=== PATIENT | female | born 1985 | race Caucasian/White ===

== ENCOUNTER 2017-02-10 12:46 | Emergency (ER) | payer OTHER ==
--- NOTE | ~2017-02-10 | US98 ---
[facility] A Service of [facility] & [facility] RADIOLOGY TEXT RESULTS PATIENT: BENJAMIN SHAW LOCATION: [facility] : [birth year] UNIT #: [id number] AGE: [address]: Phoebe Lora SEX: F ORDER DR: [id number] [facility] [address] [place], [place] [address] [id number] E MR#: [id number] Acc #: [id number] NAME: BENJAMIN SHAW : 1985 SEX: F STUDY DATE/TIME: 02/10/2017 13:50 UNIT: CFTX ROOM: STUDY DESCRIPTION: US Pelvic Non-OB Complete Attending Physician: Phoebe Lora Pa-C Ordering Physician: Phoebe Lora Pa-C Primary Care Physician: No Primary Care Physician MEDICAL IMAGING REPORT This report is preliminary unless electronic signature is present EXAM Pelvic ultrasound 02/10/2017 HISTORY Pain. Right lower quadrant pain for 2 days. History of cervical cancer. FINDINGS Real-time ultrasonography of the pelvic structures performed transabdominally and transvaginally. Transvaginal imaging utilized for better visualization of uterine and adnexal structures. The transabdominal imaging is suboptimal due to poor bladder filling. Urinary bladder is unremarkable in visualized extent. The uterus measures approximately 6.02 cm x 2.24 cm x 2.94 cm. Myometrium unremarkable. The endometrial echo complex measures approximately 1-2 mm in thickness. There may be a trace amount of fluid in the endometrial cavity. No suspicious endometrial finding. The right ovary measures 2.33 cm x 2.63 cm x 4.24 cm. Follicular cysts are present. Arterial flow is present. In the posterior mid right ovary there is an echogenic focus measuring 1.67 cm x 0.92 cm x 1.31 cm. This is not as echogenic as anticipated for fatty tissue to suggest ovarian dermoid. Ovarian dermoid remains in the differential diagnosis. A complicated cyst with internal products of hemorrhage could be considered. The left ovary measures approximately 3.05 cm x 1.86 cm x 3.49 cm. Arterial flow noted. IMPRESSION 1. The uterus shows normal size and contour. Normal myometrium. Endometrial echo complex normal in thickness. There may be a trace amount of fluid in the endometrial canal. 2. Vascular flow noted in bilateral ovaries. 3. Echogenic focus in the right ovary measuring up to 1.67 cm in diameter. Indeterminate appearance. Not as echogenic as might be anticipated for ovarian fat as with a ovarian dermoid. Fatty component not excluded. The possibility of a complicated cyst with STS. [facility] A Service of [facility] RADIOLOGY TEXT RESULTS PATIENT: BENJAMIN SHAW LOCATION: [facility] : [birth year] UNIT #: [id number] AGE: [address]: Phoebe Lora SEX: F ORDER DR: internal products of hemorrhage could be considered and is probably more likely. The history provided for this patient includes cervical cancer. Given this history, prior pelvic imaging is likely to have been performed. Comparison with any prior studies recommended. In the absence of prior studies, further characterization of the echogenic focus in right ovary with MRI if patient is candidate or CT would be recommended. At the very least, followup ultrasound imaging in 6 weeks when the patient should be at a different phase of the menstrual cycle would be useful to assess for decreasing size or resolution of this right ovarian finding. Dictated by... Goyo Rivera M.D. THIS IS AN ELECTRONICALLY VERIFIED REPORT Goyo Rivera M.D. at 02/11/2017 4:50 PM Tres TD: 02/10/2017 16:59 JOB #: [id number] MEDICAL IMAGING REPORT Page 1 of 1 COPY
[2017-02-10 12:39] LABS: URINE SOURCE CLEAN CATCH
[2017-02-10 12:56] LABS: URINE APPEARANCE CLEAR; URINE BILIRUBIN NEG (NEG); URINE BLOOD NEG (NEG); URINE COLOR YELLOW; URINE GLUCOSE NEG (NEG); URINE KETONE NEG (NEG); URINE LEUKOCYTE ESTERASE NEG (NEG); URINE NITRATE NEG (NEG); URINE PH 6.5 (5-8); URINE PROTEIN NEG (NEG); URINE SPECIFIC GRAVITY 1.019 (1.003-1.035)
[2017-02-10 13:00] LABS: CULTURE INDICATED? NO
[2017-02-15 03:38] LABS: CHLAMYDIA TRACH Not Detected (Not Detected); N GONOR Not Detected (Not Detected)
== END 2017-02-10 15:45 | disposition home or self-care (01) ==
LOC: CED 12:46
PROVIDERS: Physician Assistant Medical
DX: N83.201 Unspecified ovarian cyst, right side (principal); N76.0 Acute vaginitis; F17.210 Nicotine dependence, cigarettes, uncomplicated; Z88.1 Allergy status to other antibiotic agents; Z88.2 Allergy status to sulfonamides
CPT/HCPCS: 76830; 76856; 81003; 84703; 87491; 87591; 87808; 87905; 99284